=== PATIENT | male | born 2000 | race Caucasian/White ===

== ENCOUNTER 2019-01-31 20:45 | Emergency (ER) | payer OTHER ==
[~2019-01-31] VITALS: Ht 167.6 cm; Wt 73.9 kg
[2019-01-31 20:54] VITALS: Ht 167.6 cm; Wt 73.9 kg
[2019-01-31 22:32] VITALS: BP 122/75
== END 2019-01-31 22:33 | disposition home or self-care (01) ==
LOC: ED 20:45
DX: S61.112A Laceration without foreign body of left thumb with damage to nail, initial encounter (principal); J45.909 Unspecified asthma, uncomplicated; W45.8XXA Other foreign body or object entering through skin, initial encounter; Y93.89 Activity, other specified; Y92.89 Other specified places as the place of occurrence of the external cause; Y99.8 Other external cause status
CPT/HCPCS: 90715; J2001